=== PATIENT | female | born 1975 | race Caucasian/White ===

== ENCOUNTER 2022-05-25 07:07 | Day surgery (SDC) | payer MEDICAID ==
[~2022-05-25] VITALS: Ht 157.5 cm; Wt 90.7 kg
[2022-05-25 07:33] LABS: HCG,QUAL RESULT NEGATIVE (NEGATIVE)
[2022-05-25] MEDS ORDERED: MIDAZOLAM HCL 5 MG/5 ML VIAL ONE ×2 (09:27→09:39)
[2022-05-25] MEDS ORDERED: MEPERIDINE 100 MG INJ. 100 MG/ML VIAL ONE (09:27)
[2022-05-25] MEDS ORDERED: BENZOCAINE 20% 0.5mL UD SPRAY MM ONE (09:27)
[2022-05-25 12:50] VITALS: BP_SYST 115
== END 2022-05-25 10:45 | disposition home or self-care (01) ==
LOC: SDS 07:07 → SMU 07:08 → SDS 10:45
PROVIDERS: ATTEND Internal Medicine
DX: R19.4 Change in bowel habit (principal); K57.30 Diverticulosis of large intestine without perforation or abscess without bleeding; K29.50 Unspecified chronic gastritis without bleeding; K29.80 Duodenitis without bleeding; K64.8 Other hemorrhoids; I10 Essential (primary) hypertension; E11.9 Type 2 diabetes mellitus without complications; E78.00 Pure hypercholesterolemia, unspecified; Z87.891 Personal history of nicotine dependence; Z90.49 Acquired absence of other specified parts of digestive tract; Z79.899 Other long term (current) drug therapy; Z20.822 Contact with and (suspected) exposure to COVID-19
CPT/HCPCS: 36415; 45380; 43239; 82962; 84703; 88305; 88312; 88313; 99153; 99152; U0003; G0378; J2250; J2175